=== PATIENT | female | born 1960 | race Caucasian/White ===

== ENCOUNTER 2025-06-03 16:16 | Outpatient (CLI) | payer MEDICARE, BC ==
--- NOTE | 2025-06-03 18:30 | RADIOLOGY REPORT ---
PROCEDURE: MR MRI LUMBAR SPINE INDICATION: RADICULOPATHY, LUMBAR REGION Exam Date: 06/03/2025 04:33 PM COMPARISON: None TECHNIQUE: MRI lumbar spine without intravenous contrast. FINDINGS: Multilevel disc degeneration. Alignment: Grade 1 retrolisthesis of L2 on L3. Grade 1 anterolisthesis of L3 on L4. Grade 1 retrolisthesis of L5 on S1. Vertebrae: Vertebral body height is well maintained without evidence of a recent compression fracture. Conus: Conus medullaris terminates at the L1-L2 level. Following levels detailed below: T12-L1: Disc desiccation and 4.2 mm disc bulge. Mild spinal canal stenosis. No neural foraminal stenosis. Mild left lateral recess stenosis. The facet joints are normal. L1-2: Disc desiccation. Disc bulge with superimposed central disc extrusion measured 5.25 mm in radial dimension with 5.8 mm of cranial extension. Moderate spinal canal stenosis. Moderate left and severe right foraminal stenosis with potential right exiting L1 nerve root compression. Facet arthrosis. L2-3: Grade 1 retrolisthesis of L2 on L3 by 2.5 mm. Disc desiccation. Mild disc height loss. Disc bulge with superimposed central disc extrusion measured 5.75 mm in radial dimension. Moderate spinal canal stenosis. Severe left foraminal stenosis with potential left exiting L2 nerve root compression. Facet arthrosis. L3-4: Grade 1 anterolisthesis of L3 on L4 by 6.1 mm. Disc desiccation and 9.45 mm disc bulge. Severe spinal canal stenosis. Severe left foraminal stenosis with potential left exiting L3 nerve root compression. The facet joints are normal. L4-5: Disc desiccation and 5.85 mm disc bulge. Moderate disc height loss. Mild spinal canal stenosis. Severe bilateral foraminal stenosis with potential bilateral exiting L4 nerve root compression. Facet arthrosis. L5-S1: Grade 1 retrolisthesis of L5 on S1 by 3.6 mm. Disc desiccation. Moderate disc height loss. Central disc protrusion. Mild spinal canal stenosis. Severe right foraminal stenosis with potential right exiting L5 nerve root compression. The facet joints are normal. IMPRESSION: 1. Multilevel disc degeneration. 2. Multilevel spinal canal stenosis, most pronounced and severe at L3-L4. 3. Multilevel foraminal stenosis, most pronounced and severe at L4-L5 with potential bilateral exiting L4 nerve root compression. 4. Mild left lateral recess stenosis at T12-L1 level.
== END 2025-06-03 23:59 | disposition home or self-care (01) ==
LOC: MRI02 16:16
PROVIDERS: ATTEND Family Medicine Sports Medicine
DX: M51.17 Intervertebral disc disorders with radiculopathy, lumbosacral region (principal); M51.15 Intervertebral disc disorders with radiculopathy, thoracolumbar region; M25.561 Pain in right knee; M77.9 Enthesopathy, unspecified; M75.20 Bicipital tendinitis, unspecified shoulder; M75.110 Incomplete rotator cuff tear or rupture of unspecified shoulder, not specified as traumatic; M47.27 Other spondylosis with radiculopathy, lumbosacral region; M43.17 Spondylolisthesis, lumbosacral region; M48.07 Spinal stenosis, lumbosacral region; M48.05 Spinal stenosis, thoracolumbar region
CPT/HCPCS: 72148